=== PATIENT | female | born 1970 | race Caucasian/White ===

== ENCOUNTER 2017-12-13 16:30 | Emergency (ER) | payer BC ==
[~2017-12-13] VITALS: Ht 152.4 cm; Wt 60.3 kg
[2017-12-13 16:36] VITALS: Ht 152.4 cm; Wt 60.3 kg
[2017-12-13 18:45] VITALS: BP 145/96
== END 2017-12-13 18:45 | disposition home or self-care (01) ==
LOC: ED 16:30
DX: N39.0 Urinary tract infection, site not specified (principal); E11.9 Type 2 diabetes mellitus without complications; M79.7 Fibromyalgia; Z88.2 Allergy status to sulfonamides
CPT/HCPCS: J1885